=== PATIENT | female | born 1995 | race Caucasian/White ===

== ENCOUNTER 2016-07-05 11:45 | Emergency (ER) | payer OTHER ==
--- NOTE | 2016-07-05 13:01 | ED ---
Influenza-Like Illness - HPI Summary HPI Summary: Patient presents with generalized body aches and lower grade fever since last night. She has a mild sore throat, WITT and nausea. She feels "pressure" in her abdomen when she urinates without urgency, frequency or burning. She denies diarrhea, constipation, vomiting or neck stiffness. She says her legs, arms and lower back feel like she did a heavy lifting workout, which she hasn't. No N/T, foot drop, incontinence of urine or stool. - History of Current Complaint Chief Complaint: EDFluSymptoms Time Seen by Provider: 07/05/16 11:51 Hx Obtained From: Patient Onset/Duration: Gradual Onset Severity: Mild Associated Signs & Symptoms: Fever - 101, Myalgia, Sore Throat, Headache Related Hx: Possible Flu/Infectious Exposure - she is a student at - Allergy/Home Medications Allergies/Adverse Reactions: Allergies Allergy/AdvReac Type Severity Reaction Status Date / Time Penicillins [PCN] Allergy Swelling Verified 08/13/14 18:56 Of Face,Lips,& Throat PMH/Surg Hx/FS Hx/Imm Hx Previously Healthy: Yes Infectious Disease History: No Infectious Disease History: Denies: Traveled Outside the [place] in Last 30 Days - Family History Known Family History: Positive: None - Social History Occupation: Student Lives: Shelter Alcohol Use: Occasionally Substance Use Type: Reports: None Smoking Status (MU): Never Smoked Tobacco Review of Systems Positive: Fever, Chills Positive: Sore Throat. Negative: Ear Ache, Nasal Discharge Negative: Chest Pain Negative: Shortness Of Breath, Cough Positive: Nausea. Negative: Vomiting, Diarrhea Positive: Myalgia. Negative: Edema Negative: Bruising Positive: Headache. Negative: Weakness, Paresthesia, Numbness All Other Systems Reviewed And Are Negative: Yes Physical Exam Triage Information Reviewed: Yes Vital Signs On Initial Exam: Initial Vitals Temp Pulse Resp BP Pulse Ox 99 F 96 16 116/75 98 07/05/16 11:46 07/05/16 11:46 07/05/16 11:46 07/05/16 11:46 07/05/16 11:46 Vital Signs Reviewed: Yes Appearance: Positive: Well-Appearing, No Pain Distress, Well-Nourished Skin: Positive: Warm, Skin Color Reflects Adequate Perfusion, Dry, Soft Head/Face: Positive: Normal Head/Face Inspection Eyes: Positive: EOMI, PATTI, Conjunctiva Clear ENT: Positive: Hearing grossly normal, Pharynx normal, TMs normal Neck: Positive: Supple, Nontender, Enlarged Nodes @ - mild submandibular lymph swelling Respiratory/Lung Sounds: Positive: Clear to Auscultation, Breath Sounds Present Cardiovascular: Positive: RRR Abdomen Description: Positive: Nontender, Soft, CVA Tenderness (R) - mild, CVA Tenderness (L) - mild. Negative: Distended, Guarding Bowel Sounds: Positive: Present Musculoskeletal: Positive: Strength/ROM Intact, Pain @ - TTP bilateral arm and legs to palpation. Negative: Paris Sign Left, Paris Sign Right, Edema Left, Edema Right Neurological: Positive: Sensory/Motor Intact, Alert, Oriented to Person Place, Time, NV Bundle Intact Distally - sensation intact to light touch, Normal Gait Psychiatric: Positive: Affect/Mood Appropriate - patient is alert in no acute distress AVPU Assessment: Alert Diagnostics - Vital Signs Vital Signs Temp Pulse Resp BP Pulse Ox 07/05/16 12:19 100 95/76 99 07/05/16 11:46 99 F 96 16 116/75 98 - Laboratory Lab Results: Lab Results 07/05/16 Range/Units 12:27 Influenza A (Rapid) Negative (Negative) Influenza B (Rapid) Negative (Negative) Result Diagrams: 07/05/16 15:07 07/05/16 15:07 Lab Statement: Any lab studies that have been ordered have been reviewed, and results considered in the medical decision making process. Re-Evaluation - Re-Evaluation First Eval Re-Evaluation Time: 15:15 Change: Unchanged Comment: patient requesting food Second Eval Re-Evaluation Time: 17:15 Change: Improved Comment: Patient feels "much better". Flu Symptom Course/Dx - Diagnoses Differential Diagnosis/HQI/PQRI: Positive: Bronchitis, Influenza, Pneumonia, RSV , Upper Respiratory Infection Provider Diagnoses: Viral syndrome Discharge - Discharge Plan Condition: Stable Disposition: HOME Patient Education Materials: Viral Syndrome (ED) Referrals: [facility] @ [Outside] Additional Instructions: Please follow up with [facility] in 1-2 days for re-evaluation. Drink extra fluids and use get extra rest. Use ibuprofen 600mg every 6 hours and Tylenol 650mg every 4 hours to keep your fever under control. Eat what food you can. Return to the emergency department if symptoms worsen.
[2016-07-05 13:31] LABS: Mono Internal Control QC Line Present
[2016-07-05 14:20] LABS: Urine Bilirubin Negative (Negative); Urine Glucose Negative (Negative); Urine Nitrite Negative (Negative)
[2016-07-05] MEDS ORDERED: Ketorolac INJ* 30 MG/ML 1 ML VIAL IV ONE (14:30)
[2016-07-05] MEDS ORDERED: NS 0.9% 1000 ML* 2,000 ML IV ONE (14:30)
[2016-07-05 15:23] LABS: Hematocrit 43 % (35-47); Hemoglobin 14.5 g/dl (12.0-16.0); Mean Corpuscular HGB Conc 34 g/dl (31-36); Mean Corpuscular Hemoglobin 30 pg (27-31); Mean Corpuscular Volume 88 fL (80-97); Mean Platelet Volume 8 um3 (7.4-10.4); Red Blood Count 4.86 10^6/ul (4.0-5.4); Red Cell Distribution Width 12 % (10.5-15); White Blood Count 3.9 10^3/ul (3.5-10.8)
[2016-07-05 15:41] LABS: Albumin 3.9 g/dL (3.2-5.2); BUN/Creatinine Ratio 14.1 (8-20); C Reactive Protein 41.32 mg/L (< 5.00); EGFR African American 133.6 (>60); EGFR Non-African American 103.9 (>60); Globulin 3.1 g/dL (2-4); Magnesium 1.9 mg/dL (1.9-2.7); Potassium 3.5 mmol/L (3.5-5.0); Total Bilirubin 0.5 mg/dL (0.2-1.0)
[2016-07-05 15:48] LABS: TSH (Thyroid Stimulating Horm) 0.93 mcIU/mL (0.34-5.60)
[2016-07-05 16:29] LABS: Erythrocyte Sed Rate 14 mm/Hr (0-14)
[2016-07-05 18:04] VITALS: BP 112/77
== END 2016-07-05 18:02 | disposition home or self-care (01) ==
LOC: ED 11:45
DX: B34.9 Viral infection, unspecified (principal); R50.9 Fever, unspecified; J02.9 Acute pharyngitis, unspecified; R51 Headache; R11.0 Nausea
CPT/HCPCS: 36415; 80053; 81003; 82550; 83735; 84443; 85025; 85652; 86140; 86308; 87502; 96374; 99283; J1885